=== PATIENT | male | born 1955 | race Hispanic/Latino ===

== ENCOUNTER 2020-11-26 01:10 | Emergency (ER) | payer MEDICARE ==
[~2020-11-26] VITALS: Ht 175.3 cm; Wt 72.6 kg
[2020-11-26 01:26] VITALS: BP 165/98
[2020-11-26 02:01] LABS: BASOPHILS % (AUTO) 0.5 % (0.0-5.0); EOSINOPHILS % (AUTO) 1.3 % (0.0-8.0); HEMATOCRIT 47.1 % (42-54); LYMPHOCYTES % (AUTO) 13.7 % (21.0-51.0); MEAN CORPUSCULAR HEMOGLOBIN 31.8 pg (27.0-33.0); MEAN CORPUSCULAR HGB CONC 33.1 g/dL (32.0-36.0); MEAN CORPUSCULAR VOLUME 96.1 fL (79-99); MONOCYTES % (AUTO) 10.5 % (3.0-13.0); NEUTROPHILS % (AUTO) 73.8 % (40.0-77.0); PLATELET COUNT (AUTO) 189 K/uL (130-400); RED CELL DISTRIBUTION WIDTH 12.6 % (11.0-15.5); WHITE BLOOD COUNT (AUTO) 8.6 K/uL (4.8-10.8)
[2020-11-26 02:18] LABS: CREATININE 1.1 mg/dL (0.5-1.5); POTASSIUM 4.1 mmol/L (3.5-5.1)
[2020-11-26 02:29] LABS: ALBUMIN 4.4 g/dL (3.5-5.0); BILIRUBIN,TOTAL 0.5 mg/dL (0.2-1.0); TOTAL PROTEIN, SERUM 8.3 g/dL (6.0-8.3)
[2020-11-26 04:00] VITALS: BP 170/105
[2020-11-26] MEDS ORDERED: DICY20TA2 PO (04:24)
[2020-11-26] MEDS ORDERED: PANT40TA PO (04:24)
[2020-11-26] MEDS ORDERED: ONDA4TAB10 PO (04:24)
[2020-11-26] MEDS ORDERED: LISINOPRIL 40 MG TABLET PO SCH (04:30)
[2020-11-26] MEDS ORDERED: METOPROLOL TARTRATE 25 MG TAB PO ONE (04:30)
[2020-11-26] MEDS ORDERED: MAG HYDROX/AL HYDROX/SIMETH ES 30 ML SUSP UDCUP PO ONE (04:30)
[2020-11-26] MEDS ORDERED: LIDOCAINE HCL 2% VISCOUS 15 ML UDCUP PO ONE (04:30)
[2020-11-26] MEDS ORDERED: LIDOCAINE HCL 2% VISCOUS 15 ML UDCUP ONE (05:40)
[2020-11-26] MEDS ORDERED: MAG HYDROX/AL HYDROX/SIMETH ES 30 ML SUSP UDCUP ONE (05:40)
[2020-11-26] MEDS ORDERED: LISINOPRIL 40 MG TABLET ONE (05:41)
[2020-11-26] MEDS ORDERED: METOPROLOL TARTRATE 25 MG TAB ONE (05:41)
[2020-11-26 05:55] VITALS: BP 159/99
== END 2020-11-26 06:00 | disposition home or self-care (01) ==
LOC: EDH 01:10
DX: R10.13 Epigastric pain (principal); I10 Essential (primary) hypertension; F32.9 Major depressive disorder, single episode, unspecified; F41.9 Anxiety disorder, unspecified; Z79.899 Other long term (current) drug therapy
CPT/HCPCS: 36415; 80053; 84484; 85025; 93005